=== PATIENT | female | born 1950 | race Caucasian/White ===

== ENCOUNTER 2019-10-26 19:21 | Emergency (ER) | payer OTHER ==
[~2019-10-26] VITALS: Ht 162.6 cm; Wt 72.6 kg
[2019-10-26 19:27] VITALS: BP_SYST 128
--- NOTE | 2019-10-26 19:34 | NUR ---
Patient triaged and waiting on gurney with transport. VSS and patient appears in no acute distress at this time. Accompanied by transport team , awaiting available bed, and MD notified of need for MSE.
--- NOTE | 2019-10-26 19:42 | NUR ---
Patient to ER bed 8 to gown for evaluation. Side rails up. Report given to BLAKE AYALA.
--- NOTE | 2019-10-26 19:45 | NUR ---
Patient was BIB BLS from [facility] for psychiatric evaluation for combative behavior. No other injuries/complaints per patient or noted.
--- NOTE | 2019-10-26 19:50 | NUR ---
ER Dr. Lomas at bedside examining patient.
--- NOTE | 2019-10-26 20:04 | NUR ---
# 14 FR In and Out catheter with use of sterile technique. Immediate return of 150 ml DARK YELLOW urine noted. Urine sample collected and sent to lab. Pt tolerated procedure WELL.
[2019-10-26 20:16] LABS: BILIRUBIN,URINE NEGATIVE (NEGATIVE); BLOOD, URINE NEGATIVE (NEGATIVE); CLARITY/URINE TURBID (CLEAR); COLOR,URINE YELLOW (YELLOW); GLUCOSE,URINE NEGATIVE (NEGATIVE); KETONES,URINE TRACE (NEGATIVE); LEUKOCYTE ESTERASE ,URINE 1+ (NEGATIVE); NITRITE, URINE POSITIVE (NEGATIVE); PROTEIN URINE 1+ (NEGATIVE)
[2019-10-26 20:28] LABS: ANION GAP 9 (5-15); CALCIUM 9.2 mg/dL (8.4-11.0); CHLORIDE 104 mmol/L (98-107); CREATININE 0.96 mg/dL (0.55-1.30); GLUCOSE 143 mg/dL (70-99); POTASSIUM 3.7 mmol/L (3.5-5.1); SODIUM SERUM 140 mmol/L (136-145); UREA NITROGEN, BLOOD 22 mg/dL (8-21)
[2019-10-26 20:31] LABS: BASOPHILS # (AUTO) 0.1 K/uL (0.0-0.2); BASOPHILS % (AUTO) 0.6 % (0.0-2.0); EOSINOPHILS # (AUTO) 0.3 K/uL (0.0-0.4); EOSINOPHILS % (AUTO) 2.3 % (0.0-4.0); HEMOGLOBIN 14.1 g/dL (12.0-16.0); LYMPHOCYTES % (AUTO) 43.8 % (20.5-51.5); MEAN CORPUSCULAR HEMOGLOBIN 30 pg (27-31); MEAN CORPUSCULAR HGB CONC 33 % (32-36); MEAN CORPUSCULAR VOLUME 91 fL (79.0-98.0); MONOCYTES # (AUTO) 1.1 K/uL (0.0-1.0); MONOCYTES % (AUTO) 7.8 % (1.7-9.3); NEUTROPHILS # (AUTO) 6.3 K/uL (1.8-7.7); NEUTROPHILS % (AUTO) 45.5 % (40.0-70.0); PLATELET COUNT (AUTO) 413 K/uL (130-430); RED BLOOD CELL COUNT(AUTO) 4.71 MIL/uL (4.2-6.2); RED CELL DISTRIBUTION WIDTH 14.9 % (9.0-15.0); WHITE BLOOD COUNT (AUTO) 13.8 K/uL (4.8-10.8)
[2019-10-26 20:34] LABS: ALANINE AMINOTRANSFERASE 24 U/L (12-78); ALBUMIN 3.4 g/dL (3.4-4.8); ASPARTATE AMINOTRANSFERASE 30 U/L (10-37); TOTAL BILIRUBIN 0.2 mg/dL (0.0-1.0)
[2019-10-26 20:40] LABS: ACETAMINOPHEN < 1 ug/mL (1-30); ALCOHOL, BLOOD < 3 mg/dL (<10); GFR AFRICAN AMERICAN 74 mL/min (>90)
[2019-10-26 20:44] LABS: BARBITURATE, URINE NEGATIVE (NEG <=200); BENZODIAZEPINE, URINE POSITIVE (NEG <=150); CANNABINOID, URINE NEGATIVE (NEG <=50); COCAINE, URINE NEGATIVE (NEG <=150); METHAMPHETAMINES SCREEN,URINE NEGATIVE (NEG <=500); OPIATE, URINE NEGATIVE (NEG <=100); PHENCYCLIDINE SCREEN,URINE NEGATIVE (NEG <=25); UR TRICYCLIC ANTIDEPRESSANTS NEGATIVE (NEG <=300); URINE AMPHETAMINE NEGATIVE (NEG <=500); URINE METHADONE NEGATIVE (NEG <=200); URINE OXYCODONE SCREEN NEGATIVE (NEG <=100); URINE PROPOXYPHENE SCREEN NEGATIVE (NEG <=300)
[2019-10-26 21:22] LABS: CHOLESTEROL 100 mg/dL (<200); HDL CHOLESTEROL 59 mg/dL (>55); LDL CHOLESTEROL 30 mg/dL (<100); TRIGLYCERIDES 82 mg/dL (30-150)
[2019-10-26 21:28] LABS: BACTERIA,URINE MANY /HPF (None Seen); MUCUS,URINE None Seen /LPF (None Seen); RBC,URINE 0-3 /HPF (0-3); URINE AMORPHOUS PHOSPHATES 3+ /HPF (None Seen); WBC,URINE 20-50 /HPF (0-3)
--- NOTE | 2019-10-26 21:37 | NUR ---
Patient was moved to bed 5.
--- NOTE | 2019-10-26 21:39 | NUR ---
Pt moved to room bed 5.
--- NOTE | 2019-10-26 22:35 | NUR ---
Patient resting comfortably in hospital bed. No acute distress, will continue to monitor.
--- NOTE | 2019-10-27 00:09 | NUR ---
Patient resting comfortably in bed. No acute distress, will continue to monitor.
[2019-10-27] MEDS ORDERED: cefTRIAXone 1 GM VIAL IM ONE (00:15)
--- NOTE | 2019-10-27 00:41 | NUR ---
Medication was given, pt tolerated well. No adverse reaction, will continue to monitor.
--- NOTE | 2019-10-27 03:19 | NUR ---
Patient given written and verbal discharge instructions and verbalizes understanding. ER MD discussed with patient the results and treatment provided. Patient in stable condition. ID arm band removed. Rx of Keflex given. Patient educated on pain management and to follow up with PMD. Pain Scale 0. Opportunity for questions provided and answered. Medication side effect fact sheet provided.
[2019-10-27 03:20] VITALS: BP_SYST 144
--- NOTE | 2019-10-27 03:21 | NUR ---
Patient to be transferred to [facility] Is being transferred due to higher level of care. Receiving facility has accepting physician and available space. ER physician has signed transfer form. Patient or responsible democrat has agreed to transfer and signed form. Patient belongings inventoried and will be sent with patient. Copy of nursing notes, lab reports, EKG, Physicians Orders and X-rays to be sent with patient. Report called to Izabela at receiving facility. Receiving physician is Dr. Prabhakar. [facility] has been called for transfer.
--- NOTE | 2019-10-28 10:25 | NUR ---
RECEIVED +MRSA FROM LAB, PT WAS TRANSFERRED TO [facility] AND CALLED TO GET FAX NUMBER. FAXED TO GIVEN NUMBER--[phone] PER PAULA.
== END 2019-10-27 03:21 ==
LOC: SED 19:21
DX: N39.0 Urinary tract infection, site not specified (principal); R45.6 Violent behavior; K21.9 Gastro-esophageal reflux disease without esophagitis; F41.9 Anxiety disorder, unspecified; F32.9 Major depressive disorder, single episode, unspecified; G30.9 Alzheimer's disease, unspecified; F02.80 Dementia in other diseases classified elsewhere, unspecified severity, without behavioral disturbance, psychotic disturbance, mood disturbance, and anxiety; Z86.79 Personal history of other diseases of the circulatory system; Z86.73 Personal history of transient ischemic attack (TIA), and cerebral infarction without residual deficits
CPT/HCPCS: 36415; 80053; 80061; 80307; 81000; 83036; 85025; 87081; 87086; 96372; 99285; G0480; G0481; G0482; J0696; 87186-TC